=== PATIENT | female | born 1995 | race African-American/Black ===

== ENCOUNTER 2019-02-22 09:40 | Emergency (ER) | payer OTHER ==
[2019-02-22 09:46] VITALS: BP 115/69; PULSE 96; RESP 18; TEMP 98.7
--- NOTE | 2019-02-22 10:16 | ED ---
Female Urogenital HPI - General Chief complaint: Vaginal Bleeding Stated complaint: female Time Seen by Provider: 02/22/19 09:49 Source: patient, RN notes reviewed, old records reviewed Mode of arrival: ambulatory Limitations: no limitations - History of Present Illness Initial comments: This is a 23-year-old female presents emergency department today for evaluation complaints of vaginal bleeding. Patient states that she had a positive test on Wednesday. She states that she started have some bleeding and passing heavy clots today. Patient states that she is a female. Previous miscarriage in 2013. Patient relates that she's had no fevers or chills, dysuria or hematuria. - Related Data Home Medications Medication Instructions Recorded Confirmed Hydrocodone/Acetaminophen [[place] 1 tab PO Q6H PRN 02/22/19 02/22/19 10-325] Ibuprofen [Motrin Ib] 200 mg PO Q4H PRN 02/22/19 02/22/19 Allergies Allergy/AdvReac Type Severity Reaction Status Date / Time No Known Allergies Allergy Verified 02/22/19 10:04 Review of Systems ROS Statement: Those systems with pertinent positive or pertinent negative responses have been documented in the HPI. ROS Other: All systems not noted in ROS Statement are negative. Past Medical History Past Medical History: No Reported History History of Any Multi-Drug Resistant Organisms: None Reported Past Surgical History: Section Past Psychological History: Anxiety, Bipolar, Depression Smoking Status: Current every day smoker Past Alcohol Use History: None Reported Past Drug Use History: None Reported General Exam - General Exam Comments Initial Comments: 23-year-old [employer]. Alert and oriented. No distress. Limitations: no limitations General appearance: alert, in no apparent distress Head exam: Present: atraumatic, normocephalic, normal inspection Eye exam: Present: normal appearance, PERRL, EOMI. Absent: scleral icterus, conjunctival injection, periorbital swelling ENT exam: Present: normal exam, mucous membranes moist Neck exam: Present: normal inspection. Absent: tenderness, meningismus, lymphadenopathy Respiratory exam: Present: normal lung sounds bilaterally. Absent: respiratory distress, wheezes, rales, rhonchi, stridor Cardiovascular Exam: Present: regular rate, normal rhythm, normal heart sounds. Absent: systolic murmur, diastolic murmur, rubs, gallop, clicks GI/Abdominal exam: Present: soft, normal bowel sounds. Absent: distended, tenderness, guarding, rebound, rigid Extremities exam: Present: normal inspection, full ROM, normal capillary refill. Absent: tenderness, pedal edema, joint swelling, calf tenderness Back exam: Present: normal inspection Neurological exam: Present: alert, oriented X3, CN II-XII intact Psychiatric exam: Present: normal affect, normal mood Skin exam: Present: warm, dry, intact, normal color. Absent: rash Course Vital Signs 02/22/19 09:42 Temperature 98.7 F Pulse Rate 96 Respiratory 18 Rate Blood Pressure 115/69 O2 Sat by Pulse 98 Oximetry Medical Decision Making - Medical Decision Making 23-year-old Today with Concerns for Possible Miscarriage. She States She's Been Having Vaginal Bleeding. She Did Have Positive Present As Well As Week. Base. Last Menstrual. Patient Approximately Be 6 Weeks.. Patient's HCG Levels Less Than 2.4 at This Time. Her Rh Is Positive. Ultrasound Showed No Viable IUP. Discussed That Likely Still Be Patient's.. No Recorded Positive. Stress However Patient States That She Did Have Positive Test at the Clinic This Week. Patient Will Be Discharged at This Time Advised to Have Close up with Her Primary Care Doctor. Patient States That She Wants to be placed on control. Discussed following up with her primary. - Lab Data Result diagrams: 02/22/19 10:03 02/22/19 10:03 Lab Results 02/22/19 02/22/19 02/22/19 Range/Units 10:03 10:03 10:03 WBC 6.4 (3.8-10.6) k/uL RBC 4.66 (3.80-5.40) m/uL Hgb 12.8 (11.4-16.0) gm/dL Hct 39.5 (34.0-46.0) % MCV 84.7 (80.0-100.0) fL MCH 27.4 (25.0-35.0) pg MCHC 32.3 (31.0-37.0) g/dL RDW 14.1 (11.5-15.5) % Plt Count 303 (150-450) k/uL Neutrophils % 60 % Lymphocytes % 32 % Monocytes % 5 % Eosinophils % 1 % Basophils % 1 % Neutrophils # 3.8 (1.3-7.7) k/uL Lymphocytes # 2.0 (1.0-4.8) k/uL Monocytes # 0.4 (0-1.0) k/uL Eosinophils # 0.1 (0-0.7) k/uL Basophils # 0.0 (0-0.2) k/uL PT (9.0-12.0) sec INR (<1.2) APTT (22.0-30.0) sec Sodium 141 (137-145) mmol/L Potassium 3.8 (3.5-5.1) mmol/L Chloride 111 H (98-107) mmol/L Carbon Dioxide 24 (22-30) mmol/L Anion Gap 6 mmol/L BUN 6 L (7-17) mg/dL Creatinine 0.79 (0.52-1.04) mg/dL Est GFR (CKD-EPI)AfAm >90 (>60 ml/min/1.73 sqM) Est GFR (CKD-EPI)NonAf >90 (>60 ml/min/1.73 sqM) Glucose 91 (74-99) mg/dL Calcium 8.8 (8.4-10.2) mg/dL Total Bilirubin 0.5 (0.2-1.3) mg/dL AST 18 (14-36) U/L ALT 14 (9-52) U/L Alkaline Phosphatase 49 (38-126) U/L Total Protein 5.9 L (6.3-8.2) g/dL Albumin 3.4 L (3.5-5.0) g/dL HCG, Quant <2.4 mIU/mL Urine Color Urine Appearance (Clear) Urine pH (5.0-8.0) Ur Specific [place] (1.001-1.035) Urine Protein (Negative) Urine Glucose (UA) (Negative) Urine Ketones (Negative) Urine Blood (Negative) Urine Nitrite (Negative) Urine Bilirubin (Negative) Urine Urobilinogen (<2.0) mg/dL Ur Leukocyte Esterase (Negative) Urine RBC (0-5) /hpf Urine WBC (0-5) /hpf Ur Squamous Epith Cells (0-4) /hpf Urine Bacteria (None) /hpf Urine Mucus (None) /hpf Urine HCG, Qual (Not Detectd) Blood Type O Positive Blood Type Recheck No 06/05/19 06/05/19 06/05/19 Range/Units 10:03 10:03 10:29 WBC (3.8-10.6) k/uL RBC (3.80-5.40) m/uL Hgb (11.4-16.0) gm/dL Hct (34.0-46.0) % MCV (80.0-100.0) fL MCH (25.0-35.0) pg MCHC (31.0-37.0) g/dL RDW (11.5-15.5) % Plt Count (150-450) k/uL Neutrophils % % Lymphocytes % % Monocytes % % Eosinophils % % Basophils % % Neutrophils # (1.3-7.7) k/uL Lymphocytes # (1.0-4.8) k/uL Monocytes # (0-1.0) k/uL Eosinophils # (0-0.7) k/uL Basophils # (0-0.2) k/uL PT 10.2 (9.0-12.0) sec INR 0.9 (<1.2) APTT 24.0 (22.0-30.0) sec Sodium (137-145) mmol/L Potassium (3.5-5.1) mmol/L Chloride (98-107) mmol/L Carbon Dioxide (22-30) mmol/L Anion Gap mmol/L BUN (7-17) mg/dL Creatinine (0.52-1.04) mg/dL Est GFR (CKD-EPI)AfAm (>60 ml/min/1.73 sqM) Est GFR (CKD-EPI)NonAf (>60 ml/min/1.73 sqM) Glucose (74-99) mg/dL Calcium (8.4-10.2) mg/dL Total Bilirubin (0.2-1.3) mg/dL AST (14-36) U/L ALT (9-52) U/L Alkaline Phosphatase (38-126) U/L Total Protein (6.3-8.2) g/dL Albumin (3.5-5.0) g/dL HCG, Quant mIU/mL Urine Color Yellow Urine Appearance Cloudy H (Clear) Urine pH 5.5 (5.0-8.0) Ur Specific [place] 1.034 (1.001-1.035) Urine Protein 1+ H (Negative) Urine Glucose (UA) Negative (Negative) Urine Ketones Trace H (Negative) Urine Blood Large H (Negative) Urine Nitrite Negative (Negative) Urine Bilirubin Negative (Negative) Urine Urobilinogen 3.0 (<2.0) mg/dL Ur Leukocyte Esterase Moderate H (Negative) Urine RBC >182 H (0-5) /hpf Urine WBC 9 H (0-5) /hpf Ur Squamous Epith Cells 33 H (0-4) /hpf Urine Bacteria Rare H (None) /hpf Urine Mucus Many H (None) /hpf Urine HCG, Qual Not Detected (Not Detectd) Blood Type Blood Type Recheck - Radiology Data Radiology results: report reviewed Ultrasound is negative for IUP. Patient refused transvaginal exam. Disposition Clinical Impression: Complete miscarriage Disposition: HOME SELF-CARE Condition: Good Instructions (If sedation given, give patient instructions): Miscarriage (ED) Additional Instructions: Follow-up with primary care doctor. Return to the emergency department if any alarming signs or symptoms occur. Is patient prescribed a controlled substance at d/c from ED?: No Referrals: Venus Price MD [Primary Care Provider] - 1-2 days Time of Disposition: 11:40
[2019-02-22 10:32] LABS: Appearance,Urine Cloudy (Clear); Bacteria,Urine Rare /hpf; Bilirubin,Urine Negative (Negative); Blood,Urine Large (Negative); Color,Urine Yellow; Glucose,Urine (UA) Negative (Negative); Ketones,Urine Trace (Negative); Leukocyte Esterase,Urine Moderate (Negative); Mucus,Urine Many /hpf; Nitrite,Urine Negative (Negative); PH, Urine 5.5 (5.0-8.0); Protein,Urine 1+ (Negative); RBC,Urine >182 /hpf (0-5); Specific Gravity,Urine 1.034 (1.001-1.035); Squamous Epithelial Cell,Urine 33 /hpf (0-4)
[2019-02-22 10:33] LABS: ALT 14 U/L (9-52); AST 18 U/L (14-36); Albumin 3.4 g/dL (3.5-5.0); Alkaline Phosphatase 49 U/L (38-126); Anion Gap 6 mmol/L; Blood Urea Nitrogen 6 mg/dL (7-17); Calcium 8.8 mg/dL (8.4-10.2); Carbon Dioxide 24 mmol/L (22-30); Chloride 111 mmol/L (98-107); Glucose 91 mg/dL (74-99); Potassium 3.8 mmol/L (3.5-5.1); Sodium 141 mmol/L (137-145); Total Bilirubin 0.5 mg/dL (0.2-1.3); Total Protein 5.9 g/dL (6.3-8.2)
[2019-02-22 10:47] LABS: Basophils % (A) 1 %; Eosinophils # (A) 0.1 k/uL (0-0.7); Eosinophils % (A) 1 %; HCT 39.5 % (34.0-46.0); HGB 12.8 gm/dL (11.4-16.0); Lymphocytes % (A) 32 %; MCH 27.4 pg (25.0-35.0); MCHC 32.3 g/dL (31.0-37.0); MCV 84.7 fL (80.0-100.0); Mean Platelet Volume 7.5; Monocytes # (A) 0.4 k/uL (0-1.0); Monocytes % (A) 5 %; Neutrophils # (A) 3.8 k/uL (1.3-7.7); Neutrophils % (A) 60 %; Platelet Count 303 k/uL (150-450); RBC 4.66 m/uL (3.80-5.40); RDW 14.1 % (11.5-15.5); WBC 6.4 k/uL (3.8-10.6)
[2019-02-22 10:49] LABS: HCG,Quantitative Serum <2.4 mIU/mL
[2019-02-22 10:58] LABS: INR 0.9 (<1.2)
[2019-02-22 10:59] LABS: Prothrombin Time 10.2 sec (9.0-12.0)
--- NOTE | 2019-02-22 11:25 | US ---
EXAMINATION TYPE: Transabdominal DATE OF EXAM: 02/22/2019 11:14 AM COMPARISON: NONE CLINICAL HISTORY: Pain. Pt states vaginal bleeding and cramping EXAM PERFORMED: Transabdominal (TA),limited visualization due, pt did not want TV at this time EXAM MEASUREMENTS: GESTATIONAL AGE / DATING Physician Established: Not yet established Dates by LMP: (5 weeks/1 days) EDC: 10/24/2019 Dates by Current Scan for: No IUP seen at this time MATERNAL ANATOMY Uterus: 7.5 x 4.4 x 5.0 cm Right Ovary: 2.6 x 1.9 x 2.5 cm Left Ovary: 2.4 x 2.0 x 2.1 cm Post CDS / Adnexa: wnl, bowel Presence of free fluid: No GESTATION / SURVEY IUP: No IUP seen at this time, endo thickness= 0.7 cm Date of LMP: 01/17/2019 Beta HcG (if available): <2.4, urine HCG also not detected IMPRESSION: Limited exam as the patient declined transvaginal imaging. Uterus is suboptimally visualized as are t he ovaries. The endometrium appears to measure approximately 7 mm with no intrauterine seen at this time.
== END 2019-02-22 11:49 | disposition home or self-care (01) ==
LOC: EC 09:40
DX: O03.9 Complete or unspecified spontaneous abortion without complication (principal); F17.200 Nicotine dependence, unspecified, uncomplicated
CPT/HCPCS: 36415; 76801; 80053; 81001; 81025; 84702; 85025; 85610; 85730; 86900; 86901; 99284

== ENCOUNTER → 2022-07-06 | Outpatient (CLI) | payer OTHER ==
--- NOTE | 2022-07-06 13:54 | US ---
EXAMINATION TYPE: Transabdominal DATE OF EXAM: 07/06/2022 1:26 PM COMPARISON: Ultrasound OB 02/22/2019. CLINICAL HISTORY: Z36.89 CONFIRM GESTATIONAL AGE AND VIABILITY. Recent spontaneous AB, bleeding with clots started Jun 28, nothing now, A1 EXAM PERFORMED: OBTA EXAM MEASUREMENTS: GESTATIONAL AGE / DATING Physician Established: Not yet established Dates by LMP: (12 weeks/ 4 days) EDC: 01/14/2023 Dates by First Scan: No previous this is first scan Dates by Current Scan for: No IUP seen at this time MATERNAL ANATOMY Uterus: 9.1 x 7.2 x 4.4cm - endometrium = 1.0cm. No intrauterine gestational sac identified. No yolk sac identified. Right Ovary: 2.8 x 2.0 x 1.9cm Left Ovary: not seen due to bowel gas Post CDS / Adnexa: wnl Presence of free fluid: no Presence of corpus luteal cyst: no Presence of subchorionic bleed: no Date of LMP: 04/09/2022 IMPRESSION: No intrauterine gestational sac identified. Findings suspicious for failure corresponding t o clinical history of recent spontaneous . Endometrium is relatively normal in caliber measur ing 1 cm. Continued short-term follow-up with serial beta-hCGs is recommended if there is clinical co ncern for retained products of conception.
== END | disposition home or self-care (01) ==
LOC: RADUSWWP 08:55
PROVIDERS: ATTEND Obstetrics & Gynecology
DX: Z36.89 Encounter for other specified antenatal screening (principal)
CPT/HCPCS: 76801

== ENCOUNTER 2023-01-29 09:00 | Emergency (ER) | payer OTHER ==
[2023-01-29 09:08] VITALS: TEMP 98
--- NOTE | 2023-01-29 09:54 | ED ---
General Adult HPI - General Chief complaint: Vaginal Bleeding Stated complaint: Vaginal bleeding Time Seen by Provider: 01/29/23 09:13 Source: patient Mode of arrival: ambulatory Limitations: no limitations - History of Present Illness Initial comments: 27-year-old female presents to the emergency room for a chief complaint of vaginal bleeding. Patient is a female currently about 5 weeks with an LMP of 12/27/2021. Patient states she had intercourse last night and then had some bright red bleeding that turned into a very light brown blood this morning. Patient states she is worried because she had a miscarriage in June. Patient states she has some slight "pulling" in her abdomen but no pain or cramping. Has not yet seen her OB.Patient has no other complaints at this time including shortness of breath, chest pain, abdominal pain, nausea or vomiting, headache, or visual changes. - Related Data Home Medications Medication Instructions Recorded Confirmed Hydrocodone/Acetaminophen [[place] 1 tab PO Q6H PRN 02/22/19 02/22/19 10-325] Ibuprofen [Motrin Ib] 200 mg PO Q4H PRN 02/22/19 02/22/19 Allergies Allergy/AdvReac Type Severity Reaction Status Date / Time No Known Allergies Allergy Verified 01/29/23 09:04 Review of Systems ROS Statement: Those systems with pertinent positive or pertinent negative responses have been documented in the HPI. ROS Other: All systems not noted in ROS Statement are negative. Past Medical History Past Medical History: No Reported History History of Any Multi-Drug Resistant Organisms: None Reported Past Surgical History: Section Past Psychological History: Anxiety, Depression Smoking Status: Former smoker Past Alcohol Use History: None Reported Past Drug Use History: None Reported General Exam Limitations: no limitations General appearance: alert, in no apparent distress Head exam: Present: atraumatic Eye exam: Present: normal appearance, PERRL, EOMI ENT exam: Present: normal exam, mucous membranes moist Neck exam: Present: normal inspection, full ROM Respiratory exam: Present: normal lung sounds bilaterally. Absent: respiratory distress, wheezes Cardiovascular Exam: Present: regular rate, normal rhythm GI/Abdominal exam: Present: soft. Absent: distended, tenderness Neurological exam: Present: alert Course Vital Signs 01/29/23 09:04 Temperature 98 F Pulse Rate 88 Respiratory 18 Rate Blood Pressure 135/92 O2 Sat by Pulse 98 Oximetry Medical Decision Making - Medical Decision Making Vitals are stable. HPI physical exam as documented lab work is unremarkable. HCG is 3000. Ultrasound showed no evidence of intrauterine gestational sac. C ould be early versus ectopic versus miscarriage. No abdominal pain, unlikely to be ectopic. Patient will repeat hCG in 2 days. Results will be sent to [facility] which she is encouraged to call today to inform of ER visit. Was pt. sent in by a medical professional or institution (, [facility], [facility] NURSE, urgent care, hospital, or long term...) When possible be specific @ -[No] Did you speak to anyone other than the patient for history (EMS, parent, family, police, friend...)? What history was obtained from this source @ -[No] Did you review nursing and triage notes (agree or disagree)? Why? @ -[I reviewed and agree with nursing and triage notes] Were old charts reviewed (outside hosp., previous admission, EMS record, old EKG, old radiological studies, urgent care reports/EKG's, long term records)? Report findings @ -[No old charts were reviewed] Differential Diagnosis (chest pain, altered mental status, abdominal pain women, abdominal pain men, vaginal bleeding, weakness, fever, dyspnea, syncope, headache, dizziness, GI bleed, back pain, seizure, CVA, palpatations, mental health)? @ -Vaginal bleeding and , normal , miscarriage, ectopic EKG interpreted by me (3pts min.). @ -[As above] X-rays interpreted by me (1pt min.). @ -[None done] CT interpreted by me (1pt min.). @ -[None done] U/S interpreted by me (1pt. min.). @ -Pelvic ultrasound What testing was considered but not performed or refused? (CT, X-rays, U/S, labs)? Why? @ -[None] What meds were considered but not given or refused? Why? @ -[None] Did you discuss the management of the patient with other professionals (professionals i.e. [facility] Álvarez, [facility] NURSE, lab, RT, psych nurse, transition social worker, foundry engineer, teacher, commissary officer, rn case management)? Give summary @ -Dr. Posada Was smoking cessation discussed for >3mins.? @ -[No] Was critical care preformed (if so, how long)? @ -[No] Were there social determinants of health that impacted care today? How? (Homelessness, low income, unemployed, alcoholism, drug addiction, transportation, low edu. Level, literacy, decrease access to med. care, residential, rehab)? @ -[No] Was there de-escalation of care discussed even if they declined (Discuss DNR or withdrawal of care, Hospice)? DNR status @ -[No] What co-morbidities impacted this encounter? (DM, HTN, Smoking, COPD, CAD, Cancer, CVA, ARF, Chemo, Hep., AIDS, mental health diagnosis, sleep apnea, morbid obesity)? @ -[None] Was patient admitted / discharged? Hospital course, mention meds given and route, prescriptions, significant lab abnormalities, going to OR and other pertinent info. @ -[See above for hospital course Undiagnosed new problem with uncertain prognosis? @ -[No] Drug Therapy requiring intensive monitoring for toxicity (Heparin, Nitro, Insu eliseo, Cardizem)? @ -[No] Were any procedures done? @ -[No] Diagnosis/symptom? @ -Vaginal bleeding in , threatened miscarriage Acute, or Chronic, or Acute on Chronic? @Acute Uncomplicated (without systemic symptoms) or Complicated (systemic symptoms)? @ -uncomplicated Side effects of treatment? @ -[No] Exacerbation, Progression, or Severe Exacerbation? @ -[No] Poses a threat to life or bodily function? How? (Chest pain, USA, CT, pneumonia, PE, COPD, DKA, ARF, appy, cholecystitis, CVA, Diverticulitis, Homicidal, Suicidal, threat to staff... and all critical care pts) @ -[No] - Lab Data Result diagrams: 01/29/23 09:43 01/29/23 09:43 Lab Results 01/29/23 01/29/23 Range/Units 09:43 09:43 WBC 9.2 (3.8-10.6) k/uL RBC 4.70 (3.80-5.40) m/uL Hgb 13.0 (11.4-16.0) gm/dL Hct 39.1 (34.0-46.0) % MCV 83.3 (80.0-100.0) fL MCH 27.7 (25.0-35.0) pg MCHC 33.3 (31.0-37.0) g/dL RDW 13.5 (11.5-15.5) % Plt Count 354 (150-450) k/uL MPV 7.7 Neutrophils % 64 % Lymphocytes % 28 % Monocytes % 5 % Eosinophils % 1 % Basophils % 1 % Neutrophils # 5.9 (1.3-7.7) k/uL Lymphocytes # 2.6 (1.0-4.8) k/uL Monocytes # 0.4 (0-1.0) k/uL Eosinophils # 0.1 (0-0.7) k/uL Basophils # 0.1 (0-0.2) k/uL Sodium 139 (137-145) mmol/L Potassium 4.2 (3.5-5.1) mmol/L Chloride 109 H (98-107) mmol/L Carbon Dioxide 23 (22-30) mmol/L Anion Gap 7 mmol/L BUN 5 L (7-17) mg/dL Creatinine 0.58 (0.52-1.04) mg/dL Est GFR (CKD-EPI)AfAm >90 (>60 ml/min/1.73 sqM) Est GFR (CKD-EPI)NonAf >90 (>60 ml/min/1.73 sqM) Glucose 107 H (74-99) mg/dL Calcium 8.8 (8.4-10.2) mg/dL Total Bilirubin 0.4 (0.2-1.3) mg/dL AST 33 (14-36) U/L ALT 30 (4-34) U/L Alkaline Phosphatase 55 (38-126) U/L Total Protein 6.4 (6.3-8.2) g/dL Albumin 3.6 (3.5-5.0) g/dL HCG, Quant 3138.0 mIU/mL Disposition Clinical Impression: Vaginal bleeding during , Threatened miscarriage Disposition: HOME SELF-CARE Condition: Good Instructions (If sedation given, give patient instructions): Threatened Miscarriage (ED) Additional Instructions: Please repeat blood work in 2 days. Please follow-up with [facility]. Return to e emergency room for any worsening symptoms Is patient prescribed a controlled substance at d/c from ED?: No Referrals: Elaina Gallo PAC [REFERRING] - 1-2 days Time of Disposition: 11:23
[2023-01-29 09:57] LABS: Basophils # (A) 0.1 k/uL (0-0.2); Basophils % (A) 1 %; Eosinophils # (A) 0.1 k/uL (0-0.7); Eosinophils % (A) 1 %; HCT 39.1 % (34.0-46.0); Lymphocytes # (A) 2.6 k/uL (1.0-4.8); Lymphocytes % (A) 28 %; MCH 27.7 pg (25.0-35.0); MCHC 33.3 g/dL (31.0-37.0); MCV 83.3 fL (80.0-100.0); Mean Platelet Volume 7.7; Monocytes # (A) 0.4 k/uL (0-1.0); Monocytes % (A) 5 %; Neutrophils # (A) 5.9 k/uL (1.3-7.7); Neutrophils % (A) 64 %; Platelet Count 354 k/uL (150-450); RDW 13.5 % (11.5-15.5); WBC 9.2 k/uL (3.8-10.6)
[2023-01-29 10:06] LABS: ALT 30 U/L (4-34); AST 33 U/L (14-36); African American GFR (CKD) >90 (>60 ml/min/1.73 sqM); Albumin 3.6 g/dL (3.5-5.0); Alkaline Phosphatase 55 U/L (38-126); Anion Gap 7 mmol/L; Blood Urea Nitrogen 5 mg/dL (7-17); Calcium 8.8 mg/dL (8.4-10.2); Carbon Dioxide 23 mmol/L (22-30); Chloride 109 mmol/L (98-107); Glucose 107 mg/dL (74-99); Non-African American GFR(CKD) >90 (>60 ml/min/1.73 sqM); Potassium 4.2 mmol/L (3.5-5.1); Sodium 139 mmol/L (137-145); Total Bilirubin 0.4 mg/dL (0.2-1.3); Total Protein 6.4 g/dL (6.3-8.2)
--- NOTE | 2023-01-29 10:35 | US ---
EXAMINATION TYPE: Transabdominal DATE OF EXAM: 01/29/2023 10:25 AM COMPARISON: OB ultrasound less than 14 weeks 07/06/2022. CLINICAL INDICATION: Female, 27 years old with history of bleeding; EXAM PERFORMED: Transvaginal (TV) and Transabdominal (TA) EXAM MEASUREMENTS: GESTATIONAL AGE / DATING Physician Established: Not yet established Dates by LMP: 12/27/2022 (4 weeks/5 days) EDC: 10/03/2023 Dates by First Scan: No previous this is first scan Dates by Current Scan for: Unable to date by today's study MATERNAL ANATOMY Uterus: 8.3 x 6.4 x 6.7 cm Right Ovary: 2.5 x 2.8 x 2.6 cm Left Ovary: 3.1 x 2.2 x 3.0 cm Post CDS / Adnexa: wnl Presence of free fluid: none GESTATION / SURVEY Endometrium is thickened, no gestational sac identified. Date of LMP: 12/27/2022 Beta HcG (if available): 3138 IMPRESSION: No evidence of intrauterine gestational sac in this patient with a positive B-hCG. This can be seen i n early , ectopic and spontaneous . Follow up pelvic ultrasound in 5-7 day s and serial beta hCG studies are recommended.
[2023-01-29 11:02] LABS: Appearance,Urine Cloudy (Clear); Bacteria,Urine Rare /hpf; Bilirubin,Urine Negative (Negative); Blood,Urine Large (Negative); Color,Urine Yellow; Glucose,Urine (UA) Negative (Negative); Ketones,Urine 1+ (Negative); Leukocyte Esterase,Urine Large (Negative); Mucus,Urine Many /hpf; Nitrite,Urine Negative (Negative); PH, Urine 5.5 (5.0-8.0); Protein,Urine Trace (Negative); RBC,Urine 12 /hpf (0-5); Specific Gravity,Urine 1.016 (1.001-1.035); Squamous Epithelial Cell,Urine 13 /hpf (0-4); WBC,Urine 51 /hpf (0-5)
[2023-01-29 12:18] VITALS: BP 125/78; PULSE 81; RESP 118
== END 2023-01-29 12:18 | disposition home or self-care (01) ==
LOC: EC 09:00
DX: O20.0 Threatened abortion (principal); Z87.891 Personal history of nicotine dependence; Z3A.01 Less than 8 weeks gestation of pregnancy
CPT/HCPCS: 36415; 76801; 76817; 80053; 81001; 84702; 85025; 87086; 99284

== ENCOUNTER → 2023-01-31 | Outpatient (CLI) | payer OTHER | LOC: EC 17:13 | PROVIDERS: ATTEND Physician Assistant Medical | DX: N93.9 Abnormal uterine and vaginal bleeding, unspecified (principal) | CPT/HCPCS: 36415; 84702 ==

== ENCOUNTER → 2023-03-12 | Outpatient (CLI) | payer OTHER ==
[2023-03-12 15:48] LABS: Basophils # (A) 0.06 X 10*3/uL (0.00-0.10); Basophils % (A) 0.6 %; Eosinophils # (A) 0.08 X 10*3/uL (0.04-0.35); Eosinophils % (A) 0.8 %; HCT 39.4 % (37.2-46.3); HGB 12.9 d/dL (12.0-15.0); Lymphocytes # (A) 1.96 X 10*3/uL (0.90-5.00); Lymphocytes % (A) 18.5 %; MCH 27.8 pg (27.0-32.0); MCHC 32.7 d/dL (32.0-37.0); MCV 84.9 FL (80.0-97.0); Mean Platelet Volume 10.2 FL (9.5-12.2); Monocytes % (A) 6.6 %; NRBC Per 100 WBC 0 X 10*3/uL (0.00-0.01); Neutrophils # (A) 7.75 X 10*3/uL (1.80-7.70); Platelet Count 347 X 10*3/uL (140-440); RBC 4.64 X 10*6/uL (4.10-5.20); RDW 13.2 % (11.5-14.5)
== END | disposition home or self-care (01) ==
LOC: LABPAT 10:10
PROVIDERS: ATTEND Obstetrics & Gynecology
DX: Z01.812 Encounter for preprocedural laboratory examination (principal)
CPT/HCPCS: 36415; 85025

== ENCOUNTER 2023-03-15 10:56 | Day surgery (SDC) | payer OTHER ==
[2023-03-10 16:23] VITALS: BMI 38.7
--- NOTE | 2023-03-15 08:47 | P.HPOB ---
History of Present Illness H&P Date: 03/15/23 Chief Complaint: Missed 27-year-old presents for suction D&C. She was weak she had an ultrasound that showed no cardiac activity with a crown-rump length of 6 weeks 2 days. Review of Systems All systems: negative Constitutional: Denies chills, Denies fever Eyes: denies blurred vision, denies pain Ears, nose, mouth and throat: Denies headache, Denies sore throat Cardiovascular: Denies chest pain, Denies shortness of breath Respiratory: Denies cough Gastrointestinal: Denies abdominal pain, Denies diarrhea, Denies nausea, Denies vomiting Genitourinary: Denies dysuria, Denies hematuria Musculoskeletal: Denies myalgias Integumentary: Denies pruritus, Denies rash Neurological: Denies numbness, Denies weakness Psychiatric: Denies anxiety, Denies depression Endocrine: Denies fatigue, Denies weight change Past Medical History Past Medical History: Diabetes Mellitus, Hypertension Additional Past Medical History / Comment(s): Pre-Diabetic. High BP resolved at this time. Insomnia. History of Any Multi-Drug Resistant Organisms: None Reported Past Surgical History: Section Past Anesthesia/Blood Transfusion Reactions: No Reported Reaction Past Psychological History: Anxiety, Depression Smoking Status: Former smoker Past Alcohol Use History: None Reported Additional Past Alcohol Use History / Comment(s): Quit smoking in 2019. Past Drug Use History: Marijuana Additional Drug Use History / Comment(s): Marijuana use ocassionally for anxiety. - Past Family History Sister(s) Family Medical History: Cancer Additional Family Medical History / Comment(s): Leukemia. Medications and Allergies Home Medications Medication Instructions Recorded Confirmed Type Multivitamins, Thera [Multivitamin 1 tab PO DAILY 03/10/23 03/10/23 History (formulary)] Allergies Allergy/AdvReac Type Severity Reaction Status Date / Time No Known Allergies Allergy Verified 03/10/23 16:08 Exam Osteopathic Statement: *. No significant issues noted on an osteopathic structural exam other than those noted in the History and Physical/Consult. Heart: Regular rate and rhythm Lungs: Clear to auscultation bilaterally Abdomen: Soft, nontender Extremities: Negative Homans sign Assessment and Plan (1) Missed Status: Acute Code(s): O02.1 - MISSED SNOMED Code(s): 30070205 Plan: 1. Suction D&C
[~2023-03-15 10:56] MED LIST: DEXAMETHASONE SOD PHOSPHATE 4 MG/ML 1 ML VIAL IV ONE; HYDROmorphone 0.5 MG/0.5 ML SYRINGE IVP PRN; LACTATED RINGERS 1,000 ML IV SCH; MIDAZOLAM 2 MG/2 ML VIAL IV PRN; ONDANSETRON 4 MG/2 ML VIAL IVP ONE; Pre Op ABX Message 1 EACH MISC MISCELLANE ONE; SCOPOLAMINE 1 MG/72 HR PATCH TRANSDERM ONE
[2023-03-15] MEDS ORDERED: MIDAZOLAM 2 MG/2 ML VIAL IVP ONE (11:34)
[2023-03-15] MEDS ORDERED: LACTATED RINGERS 1,000 ML IV ONE (11:43)
[2023-03-15] MEDS ORDERED: SUCCINYLCHOLINE CHLORIDE 200 MG/10 ML VIAL IV ONE (13:48)
[2023-03-15] MEDS ORDERED: LIDOCAINE 2% INJ 20 MG/ML (2 ML VIAL) ONE (13:48)
[2023-03-15] MEDS ORDERED: MIDAZOLAM 2 MG/2 ML VIAL ONE (13:48)
[2023-03-15] MEDS ORDERED: PROPOFOL 10 MG/ML 20 ML VIAL IV ONE (13:48)
[2023-03-15] MEDS ORDERED: fentaNYL (PF) 50 MCG/ML 2 ML AMP ONE (13:48)
[2023-03-15] MEDS ORDERED: HEPARIN SODIUM,PORCINE 5,000 UNIT/ML 1 ML VIAL SQ ONE (14:37)
[2023-03-15 14:42] VITALS: TEMP 98.1
[2023-03-15 15:27] VITALS: RESP 16
[2023-03-15] MEDS ORDERED: IBUPROFEN 600 MG TAB PO ONE (15:30)
[2023-03-15 15:44] VITALS: BP 128/89; PULSE 81
--- NOTE | 2023-03-21 12:06 | P.OP ---
Date of Procedure: 03/15/23 Preoperative Diagnosis: 1.missed Postoperative Diagnosis: same Procedure(s) Performed: suction D&C Anesthesia: DARIANA Surgeon: Bonnie Weeks Estimated Blood Loss (ml): 250 IV fluids (ml): 400 Urine output (ml): 300 Pathology: other (products of conception) Condition: stable Disposition: PACU Operative Findings: Moderate amount products of conception. Uterus sounded to 12 cm. Description of Procedure: Patient is taken the operating room and general anesthesia was obtained without difficulty. She was prepped and draped in normal sterile fashion dorsal lithotomy position, legs placed in An stirrups. Bladder drained of all urine. Weighted speculum place in vagina the anterior lip the cervix was grasped with single-tooth tenaculum. The uterus sounded to 12 cm. The cervix was dilated to #9 Hegar dilator. The #9 curved suction curet was introduced into the uterus and passed several times to obtain all the tissue and blood. Sharp curet was gently used to ensure all tissue had been removed from the uterus. The suction curet was passed a few more times then. Hemostasis was achieved. Patient procedure well, sponge initial counts correct 2. She was taken to recovery in stable condition.
== END 2023-03-15 16:25 | disposition home or self-care (01) ==
LOC: OR 10:56
PROVIDERS: ATTEND Obstetrics & Gynecology
DX: O02.1 Missed abortion (principal); I10 Essential (primary) hypertension; E11.9 Type 2 diabetes mellitus without complications; F41.9 Anxiety disorder, unspecified; F32.A Depression, unspecified; F12.90 Cannabis use, unspecified, uncomplicated; Z98.891 History of uterine scar from previous surgery; Z87.891 Personal history of nicotine dependence; Z80.6 Family history of leukemia; Z79.899 Other long term (current) drug therapy
CPT/HCPCS: 86900; 86901; 88305; 86850; 59820; J2250; J0330; J1100; J2405; J3010; J2704; J2001

== ENCOUNTER 2024-06-30 23:40 | Inpatient (IN) | payer OTHER ==
[2024-07-01] MEDS ORDERED: TRANEXAMIC 1,000 MG/100ML-NACL 1,000 MG in EMPTY BAG 1 BAG IV PRN (00:14)
[2024-07-01] MEDS ORDERED: TERBUTALINE 1 MG/ML VIAL SQ PRN (00:14)
[2024-07-01] MEDS ORDERED: METHYLERGONOVINE 0.2 MG/ML 1 ML AMP IM PRN (00:14)
[2024-07-01] MEDS ORDERED: miSOPROStoL 200 MCG TAB PO PRN (00:14)
[2024-07-01] MEDS ORDERED: LIDOCAINE 0.5% (PF) 5 MG/ML (50 ML SDV) SQ PRN (00:14)
[2024-07-01] MEDS ORDERED: OXYTOCIN 10 UNIT/ML 1 ML VIAL IM PRN (00:14)
[2024-07-01] MEDS ORDERED: CARBOPROST TROMETHAMINE 250 MCG/ML 1 ML AMP IM PRN (00:14)
[2024-07-01] MEDS ORDERED: miSOPROStoL 200 MCG TAB RECTAL PRN (00:14)
[2024-07-01] MEDS: LACTATED RINGERS 1,000 ML IV SCH ×2 (00:15→07:51)
[2024-07-01 01:00] LABS: Basophils % (A) 0 %; Eosinophils # (A) 0.1 k/uL (0-0.7); Eosinophils % (A) 1 %; HCT 32.1 % (34.0-46.0); HGB 10.8 gm/dL (11.4-16.0); Lymphocytes # (A) 2.2 k/uL (1.0-4.8); Lymphocytes % (A) 17 %; MCH 28.4 pg (25.0-35.0); MCHC 33.7 g/dL (31.0-37.0); MCV 84.3 fL (80.0-100.0); Mean Platelet Volume 9.5; Monocytes # (A) 0.6 k/uL (0-1.0); Monocytes % (A) 5 %; Neutrophils # (A) 9.7 k/uL (1.3-7.7); Neutrophils % (A) 76 %; Platelet Count 320 k/uL (150-450); RBC 3.81 m/uL (3.80-5.40); WBC 12.7 k/uL (3.8-10.6)
[2024-07-01] MEDS: ceFAZolin 3 GM in SODIUM CHLORIDE 0.9% 100 ML IVPB ONE (05:18)
[2024-07-01] MEDS: CITRIC ACID-SODIUM CITRATE 15 ML CUP PO ONE (05:18)
[2024-07-01] MEDS ORDERED: HYDROmorphone (PF) 1 MG/ML ONE (05:55)
[2024-07-01] MEDS ORDERED: MIDAZOLAM 2 MG/2 ML VIAL ONE (05:55)
[2024-07-01] MEDS ORDERED: OXYTOCIN 30 UNITS/500 ML NS BAG IV ONE (05:55)
[2024-07-01] MEDS ORDERED: PROPOFOL 10 MG/ML 20 ML VIAL IV ONE (05:55)
[2024-07-01] MEDS ORDERED: LIDOCAINE 1% INJ 10MG/ML (20 ML MDV) ONE (05:55)
[2024-07-01] MEDS ORDERED: fentaNYL (PF) 50 MCG/ML 2 ML AMP ONE (05:55)
[2024-07-01] MEDS ORDERED: SUCCINYLCHOLINE CHLORIDE 200 MG/10 ML VIAL IV ONE (05:55)
[2024-07-01] MEDS ORDERED: ZOLPIDEM 5 MG TAB PO PRN (06:43)
[2024-07-01] MEDS ORDERED: diphenhydrAMINE 50 MG CAP PO PRN (06:43)
[2024-07-01] MEDS ORDERED: ONDANSETRON 4 MG/2 ML VIAL IVP PRN (06:43)
[2024-07-01] MEDS ORDERED: NALOXONE 0.4 MG/ML 1 ML VIAL IV PRN (06:43)
[2024-07-01] MEDS ORDERED: SIMETHICONE 80 MG CHEWABLE PO PRN (06:43)
[2024-07-01] MEDS ORDERED: diphenhydrAMINE 25 MG CAP PO PRN (06:43)
[2024-07-01] MEDS ORDERED: METOCLOPRAMIDE 5 MG/ML 2 ML VIAL IVP PRN (06:43)
[2024-07-01] MEDS ORDERED: diphenhydrAMINE 50 MG/ML 1 ML VIAL IVP PRN ×2 (06:43)
[2024-07-01] MEDS: OXYTOCIN 30 UNITS/500 ML NS 30 UNIT in SALINE 1 500ML.BAG IV SCH (07:42)
[2024-07-01] MEDS: HYDROmorphone PCA 10 MG/50 ML BAG IV PRN (07:46)
[2024-07-01] MEDS: KETOROLAC 15 MG/ML 1 ML VIAL IVP SCH (07:58)
[2024-07-01] MEDS: ACETAMINOPHEN TAB 500 MG TAB PO SCH (08:05)
[2024-07-01] MEDS: SENNOSIDES-DOCUSATE SODIUM 1 EACH TAB PO SCH (08:06)
[2024-07-02 07:30] LABS: Basophils % (A) 0 %; Eosinophils # (A) 0.1 k/uL (0-0.7); Eosinophils % (A) 1 %; HCT 25.8 % (34.0-46.0); Lymphocytes # (A) 1.7 k/uL (1.0-4.8); Lymphocytes % (A) 12 %; MCH 28.2 pg (25.0-35.0); MCHC 33.5 g/dL (31.0-37.0); MCV 84.4 fL (80.0-100.0); Mean Platelet Volume 9.1; Monocytes # (A) 0.6 k/uL (0-1.0); Monocytes % (A) 4 %; Neutrophils # (A) 11.6 k/uL (1.3-7.7); Neutrophils % (A) 82 %; Platelet Count 273 k/uL (150-450); RBC 3.06 m/uL (3.80-5.40); RDW 14.3 % (11.5-15.5); WBC 14.2 k/uL (3.8-10.6)
[2024-07-02 07:36] LABS: HGB 8.6 gm/dL (11.4-16.0)
[2024-07-02] MEDS: IBUPROFEN 800 MG TAB PO SCH (07:37)
--- NOTE | 2024-07-02 08:06 | P.HPOB ---
History of Present Illness H&P Date: 07/01/24 Chief Complaint: SROM 29 year old presented at 37 weeks with SROM at 2230 on 06/30/24. She has had a previous and was scheduled for a repeat. She requests general anesthesia, refuses spinal. She ate at 2200 on 06/30 so is scheduled for C/S on 07/01 at 6am. Pt is not cynthia, cervix is 2cm and baby has category 1 heart tones. Review of Systems All systems: negative Constitutional: Denies chills, Denies fever Eyes: denies blurred vision, denies pain Ears, nose, mouth and throat: Denies headache, Denies sore throat Cardiovascular: Denies chest pain, Denies shortness of breath Respiratory: Denies cough Gastrointestinal: Denies abdominal pain, Denies diarrhea, Denies nausea, Denies vomiting Genitourinary: Denies dysuria, Denies hematuria Musculoskeletal: Denies myalgias Integumentary: Denies pruritus, Denies rash Neurological: Denies numbness, Denies weakness Psychiatric: Denies anxiety, Denies depression Endocrine: Denies fatigue, Denies weight change Past Medical History Past Medical History: Diabetes Mellitus, Hypertension Additional Past Medical History / Comment(s): Pre-Diabetic. High BP resolved at this time. Insomnia. History of Any Multi-Drug Resistant Organisms: None Reported Past Surgical History: Section Past Anesthesia/Blood Transfusion Reactions: No Reported Reaction Past Psychological History: Anxiety, Depression Smoking Status: Former smoker Past Alcohol Use History: None Reported Additional Past Alcohol Use History / Comment(s): Quit smoking in 2019. Past Drug Use History: Marijuana Additional Drug Use History / Comment(s): Marijuana use ocassionally for anxiety. - Past Family History Sister(s) Family Medical History: Cancer Additional Family Medical History / Comment(s): Leukemia. Medications and Allergies Home Medications Medication Instructions Recorded Confirmed Type Vit No.179/Iron/Folic 1 each PO DAILY 06/30/24 06/30/24 History [ Tablet] Allergies Allergy/AdvReac Type Severity Reaction Status Date / Time No Known Allergies Allergy Verified 06/30/24 23:41 Exam Osteopathic Statement: *. No significant issues noted on an osteopathic structural exam other than those noted in the History and Physical/Consult. Vital Signs Temp Pulse Resp BP Pulse Ox 07/02/24 07:49 98.5 F 85 18 138/83 100 07/02/24 04:00 97.9 F 83 16 120/70 07/02/24 00:00 97.9 F 85 16 129/77 07/01/24 20:00 97.9 F 82 16 117/72 07/01/24 15:34 98.2 F 70 18 136/86 99 07/01/24 11:41 98.3 F 74 18 133/68 99 07/01/24 09:09 97.6 F 76 18 144/82 100 07/01/24 08:55 97.7 F 85 18 134/79 100 07/01/24 08:40 97.7 F 77 18 132/86 100 07/01/24 08:23 97.6 F 73 18 134/83 100 07/01/24 08:10 97.3 F L 81 18 134/78 100 Intake and Output 07/01/24 07/02/24 07/02/24 22:59 06:59 14:59 Output Total 900 400 Balance -900 -400 Output: Urine 900 400 Uretheral (Elkins) 300 Heart: Regular rate and rhythm Lungs: Clear to auscultation bilaterally Abdomen: Soft, nontender Extremities: Negative Homans sign Results Result Diagrams: 07/02/24 07:11 Abnormal Lab Results - Last 24 Hours (Table) 07/02/24 Range/Units 07:11 WBC 14.2 H (3.8-10.6) k/uL RBC 3.06 L (3.80-5.40) m/uL Hgb 8.6 L D (11.4-16.0) gm/dL Hct 25.8 L (34.0-46.0) % Neutrophils # 11.6 H (1.3-7.7) k/uL Assessment and Plan (1) SROM (spontaneous rupture of membranes) Current Visit: Yes Status: Acute Code(s): [id number] - SNOMED Code(s): 938236591 (2) Previous section Current Visit: Yes Status: Acute Code(s): Z98.891 - HISTORY OF UTERINE SCAR FROM PREVIOUS SURGERY SNOMED Code(s): 033443041 Plan: 1. repeat low transverse
--- NOTE | 2024-07-02 08:13 | P.OP ---
Date of Procedure: 07/01/24 Preoperative Diagnosis: 1. at 37 weeks 2. SROM 3. previous Postoperative Diagnosis: same Procedure(s) Performed: Repeat low transverse Anesthesia: spinal Surgeon: Bonnie [employer] Coach #1: Amy Santiago Estimated Blood Loss (ml): 800 IV fluids (ml): 1,000 Urine output (ml): 200 Pathology: none sent Condition: stable Disposition: floor Operative Findings: viable female, 8,9, weight 6#4.5oz. normal uterus, tubes and ovaries. Description of Procedure: Patient was taken to the operating room where general anesthesia was obtained without difficulty. She was prepped and draped in normal sterile fashion in dorsal supine position with a leftward tilt. Pfannenstiel skin incision was made the scalpel and carried through to the underlying layer of fascia with the scalpel. Fascia was incised in midline and carried bilaterally with the Vaughan scissors. The superior aspect of the fascial incision was grasped with Yousuf clamps elevated and the underlying rectus muscles dissected off with the Vaughan's. Attention was then turned to inferior aspect of same incision which in a similar fashion was grasped tented up and the underlying rectus muscles dissected off with the Vaughan's. The rectus muscles were the midline and the peritoneum was identified tented up and entered sharply with the scalpel. The incision was extended superiorly and inferiorly with good visualization of the bladder. The bladder blade was inserted. A low transverse incision was then made on the uterus with the scalpel. This was carried bilaterally and digital manner. Infant's head delivered atraumatically, nose and mouth bulb suctioned, cord clamped and cut, infant handed off to waiting nurses. Apgars 8,9, weight 6 lbs. 4.5 oz. Placenta delivered manually, intact with three-vessel cord. The uterus is exteriorized and cleared of all clots and debris. The uterine incision was closed with 0 Vicryl in a running locked fashion. Second layer of the same sutures used in imbricating fashion to obtain excellent hemostasis. Both ovaries and tubes appeared normal. The uterus was placed back into the abdomen. The fascia was reapproximated using 0 Vicryl in a running fashion. The subcutaneous tissues closed with 3-0 Vicryl running fashion. The skin was closed darrel. Patient tolerated the procedure well, sponge and instrument counts were correct times 2 and she was taken to the recovery room in stable condition.
--- NOTE | 2024-07-02 08:17 | P.PNOBGPC ---
Subjective - Subjective Principal diagnosis: S/P RLTCS POD #2 Interval history: Pt seen and examined. feeling well. Denies N/V, F/C, CP, SOB or calf pain. Patient reports: Reports appetite normal, Reports voiding normally, Reports pain well controlled, Reports ambulating normally [place]: doing well Objective - Vital Signs Latest vital signs: Vital Signs Temp Pulse Resp BP Pulse Ox 07/02/24 07:49 98.5 F 85 18 138/83 100 07/02/24 04:00 97.9 F 83 16 120/70 07/02/24 00:00 97.9 F 85 16 129/77 07/01/24 20:00 97.9 F 82 16 117/72 07/01/24 15:34 98.2 F 70 18 136/86 99 07/01/24 11:41 98.3 F 74 18 133/68 99 07/01/24 09:09 97.6 F 76 18 144/82 100 07/01/24 08:55 97.7 F 85 18 134/79 100 07/01/24 08:40 97.7 F 77 18 132/86 100 07/01/24 08:23 97.6 F 73 18 134/83 100 Intake and Output 07/01/24 07/02/24 07/02/24 22:59 06:59 14:59 Output Total 900 400 Balance -900 -400 Output: Urine 900 400 Uretheral (Elkins) 300 - Exam Lungs: bilateral: normal Chest: Normal S1, Normal S2 Extremities: Present: normal Abdomen: Present: normal appearance, soft. Absent: distention, tenderness Incision: Present: normal, dry, intact Uterus: Present: normal, firm - Labs Labs: Abnormal Lab Results - Last 24 Hours (Table) 07/02/24 Range/Units 07:11 WBC 14.2 H (3.8-10.6) k/uL RBC 3.06 L (3.80-5.40) m/uL Hgb 8.6 L D (11.4-16.0) gm/dL Hct 25.8 L (34.0-46.0) % Neutrophils # 11.6 H (1.3-7.7) k/uL Assessment and Plan (1) SROM (spontaneous rupture of membranes) Current Visit: Yes Status: Resolved Code(s): [id number] - SNOMED Code(s): 937609047 (2) Previous section Current Visit: Yes Status: Resolved Code(s): Z98.891 - HISTORY OF UTERINE SCAR FROM PREVIOUS SURGERY SNOMED Code(s): 314926729 (3) S/P repeat low transverse Current Visit: Yes Status: Acute Code(s): Z98.891 - HISTORY OF UTERINE SCAR FROM PREVIOUS SURGERY SNOMED Code(s): 965645254 Plan: 1. increase ambulation 2. po pain control
[2024-07-03 07:54] VITALS: RESP 16
[2024-07-03 07:59] VITALS: BP 104/71; PULSE 94; TEMP 98.2
--- NOTE | 2024-07-03 10:09 | P.DS ---
Providers Date of admission: 07/01/24 00:21 Expected date of discharge: 07/03/24 Attending physician: Bonnie Weeks Primary care physician: Stated None - Discharge Diagnosis(es) (1) SROM (spontaneous rupture of membranes) Current Visit: Yes Status: Resolved (2) Previous section Current Visit: Yes Status: Resolved (3) S/P repeat low transverse Current Visit: Yes Status: Acute Hospital Course: Patient presented with spontaneous rupture membranes. She underwent a repeat low transverse . course has been uneventful. [place] were removed this morning and her incision is clean, dry, intact. Patient denies nausea, vomiting, chest pain, shortness of breath or calf pain. Patient will be discharged home postoperative day #2 in stable condition to follow-up with me in 2 weeks. Plan - Discharge Summary New Discharge Prescriptions: No Action Vit No.179/Iron/Folic [ Tablet] 1 each PO DAILY Discharge Medication List Vit No.179/Iron/Folic [ Tablet] 1 each PO DAILY 06/30/24 [History] Follow up Appointment(s)/Referral(s): Bonnie Weeks DO [Doctor of Osteopathic Medicine] - 6 Weeks Discharge Disposition: HOME SELF-CARE
== END 2024-07-03 12:30 | disposition home or self-care (01) | DRG 540 ==
LOC: FBPOP 23:40 → 4FBP 07-01 00:21
PROVIDERS: ADMIT Obstetrics & Gynecology; ATTEND Obstetrics & Gynecology
PROC: 10D00Z1 Extraction of Products of Conception, Low, Open Approach (ICD-10-PCS; principal; 2024-07-01 06:00)
DX: O34.211 Maternal care for low transverse scar from previous cesarean delivery (principal); Z3A.37 37 weeks gestation of pregnancy; Z37.0 Single live birth; Z87.891 Personal history of nicotine dependence
CPT/HCPCS: 59025; 84112; 85025; 86850; 86900; 86901; 99213